=== PATIENT | female | born 1965 | race African-American/Black ===

== ENCOUNTER 2016-12-19 13:37 | Emergency (ER) | payer OTHER ==
[2016-12-19 13:44] VITALS: TEMP 98.6; BMI 40.1
[2016-12-19] MEDS ORDERED: ATENOLOL 50 MG TABLET (FP) PO ONE (14:45)
[2016-12-19] MEDS ORDERED: ATENOLOL 25 MG TABLET (FP) ONE (14:48)
--- NOTE | 2016-12-19 15:00 | PDOC ---
History of Present Illness - General Chief Complaint: Blood Pressure Problem Stated Complaint: HIGH BLOOD PRESSURE Time Seen by Provider: 12/19/16 14:40 History Source: Patient Exam Limitations: No Limitations - History of Present Illness Initial Comments: CHIEF COMPLAINT: 51 y/o afebrile female with PMH HTN sent over from work for feeling dizzy. HISTORY OF PRESENT ILLNESS: The patient states she only took 1 of her BP meds this morning; normally she takes lisinopril and atenolol in the morning but is out of her atenolol. She states the temperature at her job was very high and she felt dizzy so they sent her here. She states as soon as she got out of the warm building she instantly felt better. She denies REYES, neck pain, fall, LOC, f /c, n/v/d, CP, SOB, abd pain, back pain, palpitations, changes in vision/ hearing. Vital signs on arrival are notable for pulse of 111 and BP of 165/105. REVIEW OF SYSTEMS: GENERAL/CONSTITUTIONAL: No fever/chills. No weakness. No weight change. HEAD, EYES, EARS, NOSE AND THROAT: No change in vision. No ear pain or discharge. No sore throat. CARDIOVASCULAR: No chest pain or shortness of breath. RESPIRATORY: No cough, wheezing, or hemoptysis. GASTROINTESTINAL: no abd pain, nausea, vomiting, diarrhea. GENITOURINARY: No dysuria, frequency, or change in urination. MUSCULOSKELETAL: No joint or muscle swelling or pain. No neck or back pain. SKIN: No rash or easy bruising. NEUROLOGIC: +dizziness (resolved). No headache, vertigo, loss of consciousness, or loss of sensation. PHYSICAL EXAM: GENERAL: The patient is awake, alert, and fully oriented, in no acute distress. She is very well appearing, in NAD or obvious discomfort. HEAD: Normal with no signs of trauma. NECK: Full ROM of cervical spine. No meningismus. ENT: Pupils equal, round and reactive to light, extraocular movements intact, sclera anicteric, conjunctiva clear. No photophobia. LUNGS: Clear to auscultation bilaterally. Normal excursion. No respiratory distress or use of accessory muscles. CV: RRR, S1/S2, no MRG. Cap refill < 2 sec. No carotid bruits ABDOMEN: Soft, non-distended, non-tender even to deep palpation, no hepatomegaly or splenomegaly, no masses. EXTREMITIES: Normal range of motion, no edema. NEUROLOGICAL: Normal speech, normal gait. CN II-XII grossly intact. PSYCH: Normal mood, normal affect. SKIN: Warm, dry, normal turgor, no rashes or lesions noted. Past History - Past Medical History Allergies/Adverse Reactions: Allergies Allergy/AdvReac Type Severity Reaction Status Date / Time Penicillins Allergy Verified 12/19/16 13:39 Home Medications: Ambulatory Orders Atenolol [Tenormin] 50 mg PO DAILY 03/19/12 Albuterol Sulfate [Proair Respiclick] 90 mcg IH Q4HWA PRN 12/19/16 Anemia: Yes Asthma: Yes Cancer: No Cardiac Disorders: No CVA: No COPD: Yes (SarcoidOSIS) CHF: No Dementia: No Diabetes: No GI Disorders: No Disorders: No HTN: Yes Hypercholesterolemia: No Liver Disease: No Seizures: No Thyroid Disease: No - Surgical History Appendectomy: Yes Cholecystectomy: Yes - Psycho/Social/Smoking Cessation Hx Suicidal Ideation: No Smoking Status: No Smoking History: Never smoked Number of Cigarettes Smoked Daily: 0 Hx Alcohol Use: Yes (OCCASIONALLY) Drug/Substance Use Hx: No Substance Use Type: None Hx Substance Use Treatment: No *Physical Exam - Vital Signs Last Vital Signs Temp Pulse Resp BP Pulse Ox 98.6 F 111 H 19 165/105 98 12/19/16 13:39 12/19/16 13:39 12/19/16 13:39 12/19/16 13:39 12/19/16 13:39 Heart Score/ECG Review - ECG Intrepretation Comment:: Twelve-lead EKG was performed and reviewed by Dr. Brown. There is normal sinus rhythm with a normal rate. The axis is normal. The intervals are normal. There are no ST or T wave abnormalities. Impression: Normal twelve-lead EKG Medical Decision Making - Medical Decision Making A/P: 51 y/o female with dizziness today at work found to have BP of 165/105 and BP of 111. She states she is now asymptomatic. She did not take her BP meds this morning. Plan is as follows: 1. EKG 2. PO atenolol 3. reassess EKG normal The patient continues to remain asymptomatic. Her repeat BP is 166/104 with HR of 67. She wants to go home. Will discharge to home. Instructed her to apple picker her BP meds today and take as prescribed daily. Instructed her to return to the ER immediately with any worsening or concerning symptoms. The patient verbalizes understanding of all instructions, has no further questions and is awaiting discharge. *DC/Admit/Observation/Transfer Diagnosis at time of Disposition: Dizziness HTN (hypertension) Qualifiers: Hypertension type: other secondary hypertension Qualified Code(s): I15.8 - Other secondary hypertension - Discharge Dispostion Disposition: HOME Condition at time of disposition: Improved - Referrals Referrals: Sammie Wilder MD [Primary Care Provider] - - Patient Instructions Printed Discharge Instructions: DI for High Blood Pressure, DI for Dizziness- Nonvertigo Additional Instructions: Discharge Instructions: -apple picker your blood pressure medication prescription and take BP meds as prescribed daily -Drink at least 64oz of water daily -Follow up with your doctor next week -Return to the ER with any worsening or concerning symptoms.
[2016-12-19 16:07] VITALS: BP 166/104; PULSE 68
--- NOTE | 2016-12-22 12:54 | EKG ---
Test Reason : Blood Pressure : / mmHG Vent. Rate : 073 BPM Atrial Rate : 073 BPM P-R Int : 160 ms QRS Dur : 082 ms QT Int : 388 ms P-R-T Axes : 050 -08 028 degrees QTc Int : 427 ms NORMAL SINUS RHYTHM NORMAL ECG WHEN COMPARED WITH ECG OF 19-MAR-2012 10:07, NO SIGNIFICANT CHANGE WAS FOUND Confirmed by QING KAYE MD ([id number]) on 12/22/2016 12:54:06 PM Referred By: Confirmed By:QING AKYE MD
== END 2016-12-19 16:24 | disposition home or self-care (01) ==
LOC: JER 13:37
DX: I15.8 Other secondary hypertension (principal); J45.909 Unspecified asthma, uncomplicated; D64.9 Anemia, unspecified
CPT/HCPCS: 93005; 93010; 99282-25

== ENCOUNTER 2019-06-22 07:33 | Observation (INO) | payer OTHER ==
[2019-06-22] MEDS ORDERED: ASPIRIN 81 MG CHEWABLE TABLETS PO ONE (08:40)
[2019-06-22 08:50] LABS: BASO % 1.4 % (0-2.0); EOS % 2.2 % (0-4.5); HEMATOCRIT 39.9 % (32.4-45.2); HEMOGLOBIN 12.9 GM/dL (10.7-15.3); LYMPH % 23.6 % (8-40); MCH 23.5 pg (25.7-33.7); MCHC 32.2 g/dl (32.0-36.0); MEAN PLT VOLUME 8.8 fl (7.5-11.1); MONO % 7.2 % (3.8-10.2); NEUT % 65.6 % (42.8-82.8); PLATELET COUNT 236 K/MM3 (134-434); RBC 5.47 M/mm3 (3.60-5.2); RDW 14.1 % (11.6-15.6); WHITE BLOOD COUNT 4.5 K/mm3 (4.0-10.0)
[2019-06-22] MEDS ORDERED: ASPIRIN 81 MG CHEWABLE TABLETS ONE (08:54)
[2019-06-22 09:17] LABS: ALBUMIN 3.7 g/dl (3.4-5.0); BILIRUBIN,TOTAL 0.4 mg/dL (0.2-1); BLOOD UREA NITROGEN 16.6 mg/dL (7-18); CALCIUM 9.2 mg/dL (8.5-10.1)
--- NOTE | 2019-06-22 09:22 | PDOC ---
Documentation entered by Matthew Alexander SCRIBE, acting as scribe for Italia Brown MD. Italia Brown MD: This documentation has been prepared by the Catherine teixeira Xhesika, SCRIBE, under my direction and personally reviewed by me in its entirety. I confirm that the documentation accurately reflects all work, treatment, procedures, and medical decision making performed by me. History of Present Illness - General Chief Complaint: Chest Pain Stated Complaint: CHEST DISCOMFORT History Source: Patient Exam Limitations: No Limitations - History of Present Illness Initial Comments: 06/22/19 08:31 The patient is a 54 year old female with a significant PMH of anemia, asthma, COPD, CHF, HTN, and DM sarcoidosis who presents to the emergency department for sudden onset of L sided chest pain described as tightness." Patient notes she got out the shower this morning and could not lift her L hand up. Pt notes she took 2 baby aspirins with mild relief of symptoms. Patient notes she had a stress test done within the past year and it was abnormal. Pt denies leg swelling, shortness of breath, headache and dizziness. Denies fever, chills, cough, nausea, vomiting, diarrhea and constipation. Allergies: Penicillins Past surgical history: Appendectomy, Cholecystectomy PCP: Sammie Bell 06/22/19 09:23 Past History - Past Medical History Allergies/Adverse Reactions: Allergies Allergy/AdvReac Type Severity Reaction Status Date / Time Penicillins Allergy Verified 06/22/19 07:38 Home Medications: Ambulatory Orders Atenolol [Tenormin] 50 mg PO DAILY 03/19/12 Albuterol Sulfate [Proair Respiclick] 90 mcg IH Q4HWA PRN 12/19/16 Anemia: Yes Asthma: Yes Cancer: No Cardiac Disorders: No CVA: No COPD: Yes (SarcoidOSIS) CHF: Yes Dementia: No Diabetes: Yes GI Disorders: No Disorders: No HTN: Yes Hypercholesterolemia: No Liver Disease: No Seizures: No Thyroid Disease: No - Surgical History Appendectomy: Yes Cholecystectomy: Yes - Psycho Social/Smoking Cessation Hx Smoking Status: No Smoking History: Never smoked Number of Cigarettes Smoked Daily: 0 Hx Alcohol Use: No Drug/Substance Use Hx: No Substance Use Type: None Hx Substance Use Treatment: No Review of Systems - Review of Systems Able to Perform ROS?: Yes Comments:: 06/22/19 08:31 GENERAL/CONSTITUTIONAL: No fever or chills. No weakness. HEAD, EYES, EARS, NOSE AND THROAT: No change in vision. No ear pain or discharge. No sore throat. CARDIOVASCULAR: +chest pain/ chest tightness. No shortness of breath. RESPIRATORY: No cough, wheezing, or hemoptysis. GASTROINTESTINAL: No nausea, vomiting, diarrhea or constipation. GENITOURINARY: No dysuria, frequency, or change in urination. MUSCULOSKELETAL: No joint or muscle swelling or pain. No neck or back pain. SKIN: No rash NEUROLOGIC: No headache, vertigo, loss of consciousness, or change in strength/ sensation. ENDOCRINE: No increased thirst. No abnormal weight change. HEMATOLOGIC/LYMPHATIC: No anemia, easy bleeding, or history of blood clots. ALLERGIC/IMMUNOLOGIC: No hives or skin allergy. *Physical Exam - Vital Signs Last Vital Signs Temp Pulse Resp BP Pulse Ox 97.9 F 61 18 167/61 06/22/19 07:35 06/22/19 07:35 06/22/19 07:35 06/22/19 07:35 - Physical Exam Comments: 06/22/19 09:19 Awake alert no acute distress lungs are clear bilaterally heart is regular without murmurs rubs or gallops abdomen soft nontender extremities are warm well perfused no edema no calf tenderness neurologically patient is awake alert and oriented x3 has 2+ symmetric distal pulses Heart Score/ECG Review - History History: Moderately suspicious - Electrocardiogram EKG: Normal - Age Age: 45-65 - Risk Factors Risk Factors Heart Score: Yes Hx Hypertension, Yes Positive family hx of cardiac disease, Yes Hx Obesity Based on the list above the patient has:: >/=3 risk factors or Hx atherosclerotic disease - Troponin Troponin: </= normal limit - Score Heart Score - Total: 4 #1 General ECG Interpretation: Sinus Rhythm, Normal Rate, Normal Intervals, No acute ischemic changes Compared to previous ECG there are: Other (left axiw) ED Treatment Course - LABORATORY CBC & Chemistry Diagram: 06/22/19 08:35 06/22/19 08:35 - ADDITIONAL ORDERS Additional order review: Laboratory Results 06/22/19 08:35 Sodium 139 Potassium 4.0 Chloride 108 H Carbon Dioxide 27 Anion Gap 4 L BUN 16.6 Creatinine 1.0 Est GFR (CKD-EPI)AfAm 74.49 Est GFR (CKD-EPI)NonAf 64.27 Random Glucose 143 H Calcium 9.2 Total Bilirubin 0.4 AST 19 ALT 28 Alkaline Phosphatase 123 H Total Protein 7.0 Albumin 3.7 06/22/19 08:35 RBC 5.47 H MCV 73.0 L MCHC 32.2 RDW 14.1 MPV 8.8 Neutrophils % 65.6 Lymphocytes % 23.6 D Monocytes % 7.2 Eosinophils % 2.2 Basophils % 1.4 D - RADIOLOGY Radiology Studies Ordered: Category Date Time Status CHEST PA & LAT [RAD] Stat Radiology 06/22/19 08:40 Taken - Medications Given in the ED: ED Medications Discontinued Medications Generic Name Dose Route Start Last Admin Trade Name Mary PRN Reason Stop Dose Admin Aspirin 162 mg 06/22/19 08:40 06/22/19 08:57 Asa - PO 06/22/19 08:41 162 mg ONCE ONE Administration Medical Decision Making - Medical Decision Making 06/22/19 09:20 54-year-old female history of CHF sarcoidosis, copd htn hypertension here today complaining of chest pain. Patient states that she noted the chest pain this a.m. was described as a tightness in her left substernal area no radiation no associated shortness of breath or diaphoresis no nausea no vomiting states she took 2 baby aspirin at home which relieved her pain was slightly did have a stress test 1 year ago which was an exercise stress which she states did not go very well due to exercise intolerance. 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 Plan EKG chest x-ray CBC CMP troponin. Patient was given an additional 1 6 2 mg of aspirin. Due to her history of heart disease and age patient will be admitted to telemetry for observation rule out ACS. Initial CBC troponin and EKG were unremarkable call placed to Dr. Smyth for admission awaiting callback 06/22/19 09:23 06/22/19 09:24 Discharge - Discharge Information Problems reviewed: Yes Clinical Impression/Diagnosis: HTN (hypertension), Chest pain Condition: Improved - Admission Yes - Follow up/Referral Referrals: Sammie Smyth MD [Primary Care Provider] - - Patient Discharge Instructions - Post Discharge Activity
[2019-06-22] MEDS ORDERED: NITROGLYCERIN SUBLINGUAL 1/150 0.4 MG TAB SL PRN (10:32)
[2019-06-22 11:19] VITALS: BMI 42.8
[2019-06-22] MEDS: ATENOLOL 50 MG TABLET (FP) PO SCH (11:20)
--- NOTE | 2019-06-22 14:40 | HP ---
Admitting History and Physical - Primary Care Physician PCP: Sammie Wilder - Admission Chief Complaint: Chest pain History of Present Illness: Patient is a 54 y/o female with past medical history of HTN, HLD, DM, COPD, Sarcoidosis, CHF. Patient complain of chest pain. She states having L sided chest pain under breast accompanied with numbness to L shoulder. Pain is described as sharp and non-radiating. Pain began this morning while she was getting ready for work and worsened throughout the morning. Currently continues to have chest pain 01/17. Denies SOB, dizziness, or palpitations with chest pain. History Source: Patient Limitations to Obtaining History: No Limitations - Past Medical History Cardiovascular: Yes: CHF, HTN, Hyperlipdemia Pulmonary: Yes: COPD ...LMP: 06/24/14 Endocrine: Yes: Diabetes Mellitus - Past Surgical History Past Surgical History: Yes: Appendectomy, Cholecystectomy, - Smoking History Smoking history: Never smoked Aproximately how many cigarettes per day: 0 - Alcohol/Substance Use Hx Alcohol Use: Yes (occasionally) - Social History Usual Living Arrangement: Yes: Alone ADL: Independent History of Recent Travel: No Home Medications - Allergies Allergies/Adverse Reactions: Allergies Allergy/AdvReac Type Severity Reaction Status Date / Time Penicillins Allergy Verified 06/22/19 07:38 - Home Medications Home Medications: Ambulatory Orders Atenolol [Tenormin] 50 mg PO DAILY 03/19/12 Albuterol Sulfate [Proair Respiclick] 90 mcg IH Q4HWA PRN 12/19/16 Review of Systems - Review of Systems Constitutional: reports: No Symptoms Eyes: reports: No Symptoms HENT: reports: No Symptoms Neck: reports: No Symptoms Cardiovascular: reports: Chest Pain Respiratory: reports: No Symptoms Gastrointestinal: reports: No Symptoms Genitourinary: reports: No Symptoms Breasts: reports: No Symptoms Reported Musculoskeletal: reports: No Symptoms Integumentary: reports: No Symptoms Neurological: reports: No Symptoms Endocrine: reports: No Symptoms Hematology/Lymphatic: reports: No Symptoms Psychiatric: reports: No Symptoms Physical Examination Vital Signs: Vital Signs Temperature 98.4 F 06/22/19 14:00 Pulse Rate 92 H 06/22/19 14:00 Respiratory Rate 20 06/22/19 14:00 Blood Pressure 130/77 06/22/19 14:00 O2 Sat by Pulse Oximetry (%) 100 06/22/19 11:02 Constitutional: Yes: No Distress, Calm, Obese Eyes: Yes: Conjunctiva Clear HENT: Yes: Atraumatic Neck: Yes: Supple Cardiovascular: Yes: Regular Rate and Rhythm Respiratory: Yes: Regular, CTA Bilaterally Gastrointestinal: Yes: Normal Bowel Sounds, Soft, Abdomen, Obese Musculoskeletal: Yes: Muscle Weakness Extremities: Yes: WNL Edema: No Neurological: Yes: Alert, Oriented Psychiatric: Yes: Alert, Oriented Labs: CBC, BMP 06/22/19 08:35 06/22/19 08:35 Imaging - Results Chest X-ray: Report Reviewed Problem List - Problems (1) COPD (chronic obstructive pulmonary disease) Assessment/Plan: -Pulm consult -O2 via NC -keep SpO2 >90% -bronchodilators -CXR shows mild cardiomegaly, possible mild vascular enlargement Code(s): J44.9 - CHRONIC OBSTRUCTIVE PULMONARY DISEASE, UNSPECIFIED (2) Sarcoidosis Assessment/Plan: -Pulm consult -O2 via NC -keep SpO2 >90% -bronchodilators -CXR shows mild cardiomegaly, possible mild vascular enlargement Code(s): D86.9 - SARCOIDOSIS, UNSPECIFIED (3) HLD (hyperlipidemia) Assessment/Plan: -Lipid panel Code(s): E78.5 - HYPERLIPIDEMIA, UNSPECIFIED (4) Chest pain Assessment/Plan: -Tele monitoring -Cardiology consult -Echocardiogram -trop neg Code(s): R07.9 - CHEST PAIN, UNSPECIFIED (5) HTN (hypertension) Assessment/Plan: -Atenolol -low Na/diabetic diet Code(s): I10 - ESSENTIAL (PRIMARY) HYPERTENSION (6) Diabetes mellitus Assessment/Plan: -[facility] -[facility] -HgA1c Code(s): E11.9 - TYPE 2 DIABETES MELLITUS WITHOUT COMPLICATIONS Assessment/Plan see problem list dvt ppx
--- NOTE | 2019-06-22 14:54 | CON.CARD ---
Consult Consult Specialty:: cardiology Referred by:: Tina Reason for Consultation:: chest pain - History of Present Illness Chief Complaint: Chest pain History of Present Illness: The patient is a 54-year-old obese female we've a history of diabetes, hypertension, hyperlipidemia, COPD, sarcoidosis,congestive heart failure,now admitted with chest pains at rest. The patient stated that she was at home when she began experiencing left-sided sharp pains.Symptoms worsened by movement of the left arm. They lasted 2-3 minute per episode.The patient still reports mild discomfort this afternoon. Symptoms are partially reproducible.The patient seems to be quite comfortable at the time of my exam. - History Source History Provided By: Patient Limitations to Obtaining History: No Limitations - Past Medical History ...LMP: 06/24/14 - Alcohol/Substance Use Hx Alcohol Use: Yes (occasionally) - Smoking History Smoking history: Never smoked Aproximately how many cigarettes per day: 0 Home Medications - Allergies Allergies/Adverse Reactions: Allergies Allergy/AdvReac Type Severity Reaction Status Date / Time Penicillins Allergy Verified 06/22/19 07:38 - Home Medications Home Medications: Ambulatory Orders Atenolol [Tenormin] 50 mg PO DAILY 03/19/12 Albuterol Sulfate [Proair Respiclick] 90 mcg IH Q4HWA PRN 12/19/16 Review of Systems - Review of Systems Constitutional: reports: No Symptoms Eyes: reports: No Symptoms HENT: reports: No Symptoms Neck: reports: No Symptoms Cardiovascular: reports: Chest Pain Respiratory: reports: SOB on Exertion Gastrointestinal: reports: No Symptoms Genitourinary: reports: No Symptoms Breasts: reports: No Symptoms Reported Musculoskeletal: reports: No Symptoms Integumentary: reports: No Symptoms Neurological: reports: No Symptoms Endocrine: reports: No Symptoms Hematology/Lymphatic: reports: No Symptoms Psychiatric: reports: No Symptoms Vital Signs: Vital Signs Temperature 98.4 F 06/22/19 14:00 Pulse Rate 92 H 06/22/19 14:00 Respiratory Rate 20 06/22/19 14:00 Blood Pressure 130/77 06/22/19 14:00 O2 Sat by Pulse Oximetry (%) 100 06/22/19 11:02 Constitutional: Yes: No Distress, Calm, Obese Eyes: Yes: WNL, Conjunctiva Clear, EOM Intact HENT: Yes: WNL, Atraumatic, Normocephalic Neck: Yes: WNL, Supple, Trachea Midline Respiratory: Yes: WNL, Regular, CTA Bilaterally Gastrointestinal: Yes: WNL, Normal Bowel Sounds, Soft Renal/: Yes: WNL Cardiovascular: Yes: WNL, Regular Rate and Rhythm JVD: No Carotid Bruit: No PMI: Non-Displaced Heart Sounds: Yes: S1, S2 Murmur: Yes: Systolic Murmur, Grade 2 Musculoskeletal: Yes: WNL Extremities: Yes: WNL Edema: No Peripheral Pulses WNL: Yes Integumentary: Yes: WNL Neurological: Yes: WNL, Alert, Oriented ...Motor Strength: WNL Psychiatric: Yes: WNL, Alert, Oriented - Other Data Labs, Other Data: CBC, BMP 06/22/19 08:35 06/22/19 08:35 Troponin, BNP 06/22/19 08:35 Troponin I < 0.02 Troponin, BNP 06/22/19 08:35 Troponin I < 0.02 Assessment/Plan The patient is a 54-year-old obese female we've a history of diabetes, hypertension, hyperlipidemia, COPD, sarcoidosis,congestive heart failure,now admitted with chest pains at rest. The patient stated that she was at home when she began experiencing left-sided sharp pains.Symptoms worsened by movement of the left arm. They lasted 2-3 minute per episode.The patient still reports mild discomfort this afternoon. Symptoms are partially reproducible.The patient seems to be quite comfortable at the time of my exam. .Atypical, partially reproducible chest pains. Significant risk factors for coronary artery disease there is no evidence of ischemia nor acute coronary syndrome. please arrange for an echocardiogram. please arrange for a pharmacological nuclear stress test. we'll follow results. The patient is stable.
[2019-06-22] MEDS ORDERED: ALBUTEROL SO4 0.083% IH SOL 2.5 MG/3 ML VIAL.NEB. NEB PRN (15:08)
[2019-06-22] MEDS: INSULIN SLIDING SCALE (NOVOLOG) 1 VIAL SQ SCH ×2 (16:29→21:42)
[2019-06-22] MEDS ORDERED: ACETAMINOPHEN 325 MG TABLET (FP) PO PRN (21:50)
[2019-06-23 06:56] LABS: BASO % 0.4 % (0-2.0); EOS % 3.2 % (0-4.5); HEMOGLOBIN 12.1 GM/dL (10.7-15.3); LYMPH % 28.5 % (8-40); MCH 22.7 pg (25.7-33.7); MCHC 31.2 g/dl (32.0-36.0); MEAN CELL VOLUME 72.9 fl (80-96); MEAN PLT VOLUME 8.8 fl (7.5-11.1); MONO % 8.4 % (3.8-10.2); NEUT % 59.5 % (42.8-82.8); PLATELET COUNT 222 K/MM3 (134-434); RBC 5.34 M/mm3 (3.60-5.2); RDW 14.1 % (11.6-15.6); WHITE BLOOD COUNT 4.5 K/mm3 (4.0-10.0)
[2019-06-23] MEDS: INSULIN SLIDING SCALE (NOVOLOG) 1 VIAL SQ SCH ×2 (07:04→11:00)
[2019-06-23 07:53] LABS: ALBUMIN 3.4 g/dl (3.4-5.0); ALK PHOS 113 U/L (45-117); ANION GAP 5 MMOL/L (8-16); BILIRUBIN,TOTAL 0.4 mg/dL (0.2-1); BLOOD UREA NITROGEN 17.4 mg/dL (7-18); CALCIUM 9.2 mg/dL (8.5-10.1); CHLORIDE 106 mmol/L (98-107); CHOLESTEROL 175 mg/dL (50-200); CO2 26 mmol/L (21-32); CREATININE 0.9 mg/dL (0.55-1.3); GLUCOSE,RANDOM 140 mg/dL (74-106); HDL CHOLESTEROL 50 mg/dL (40-60); LDL CHOLESTEROL (ONLY SJRH) 101 mg/dL (5-100); MAGNESIUM 2.2 mg/dL (1.8-2.4); PHOSPHOROUS 3.7 mg/dL (2.5-4.9); POTASSIUM 4.1 mmol/L (3.5-5.1); SGOT/AST 14 U/L (15-37); SGPT/ALT 26 U/L (13-61); SODIUM 138 mmol/L (136-145); TOT PROT 6.4 g/dl (6.4-8.2); TRIGLYCERIDES 86 mg/dL (0-150)
[2019-06-23] MEDS: ASPIRIN COATED 81 MG TABLET.EC PO SCH ×2 (09:37→14:30)
[2019-06-23] MEDS: ATENOLOL 50 MG TABLET (FP) PO SCH ×2 (09:37→14:29)
[2019-06-23] MEDS ORDERED: REGADENOSON 0.4 MG/5 ML PRE-FILLED SYRINGE IVPUSH ONE ×2 (10:23→10:30)
--- NOTE | 2019-06-23 12:40 | EKG ---
Test Reason : Blood Pressure : / mmHG Vent. Rate : 062 BPM Atrial Rate : 062 BPM P-R Int : 184 ms QRS Dur : 080 ms QT Int : 420 ms P-R-T Axes : 049 -22 038 degrees QTc Int : 426 ms POOR DATA QUALITY, INTERPRETATION MAY BE ADVERSELY AFFECTED NORMAL SINUS RHYTHM NORMAL ECG WHEN COMPARED WITH ECG OF 19-DEC-2016 15:35, NO SIGNIFICANT CHANGE WAS FOUND Confirmed by EVELYN WISDOM, CARLINE ([id number]) on 06/23/2019 12:39:55 PM Referred By: Confirmed By:CARLINE RIVAS MD
--- NOTE | 2019-06-23 12:56 | ECHO ---
Name: CHIP HAMPTON Exam:Adult Echocardiogram Study Date: 06/23/2019 08:39 AM Age: 54 yrs Reason For Study: Chest pain Height: 67 in Weight: 273 lb BSA: 2.3 m2 MMode/2D Measurements & Calculations IVSd: 1.4 cm Ao root diam: 2.6 cm LVIDd: 3.9 cm LA dimension: 3.8 cm LVIDs: 2.4 cm ACS: 2.0 cm LVPWd: 1.5 cm EDV(Teich): 65.1 ml LVOT diam: 2.0 cm ESV(Teich): 20.8 ml RV S Blaine: 12.1 cm/sec Doppler Measurements & Calculations MV E max blaine: 57.3 cm/sec Ao V2 max: 125.1 cm/sec MV A max blaine: 80.0 cm/sec Ao max P.3 mmHg MV E/A: 0.72 Ao V2 mean: 94.7 cm/sec MV dec time: 0.18 sec Ao mean P.8 mmHg Ao V2 VTI: 26.7 cm TR max blaine: 200.1 cm/sec Med Peak E' Blaine: 7.3 cm/sec TR max P.2 mmHg Med E/e': 7.8 RVSP(TR): 26.2 mmHg Lat Peak E' Blaine: 8.1 cm/sec Lat E/e': 7.1 RAP systole: 10.0 mmHg Procedure A complete two-dimensional transthoracic echocardiogram was performed (2D, M-mode, Doppler and color flow Doppler). The study was technically difficult with many images being suboptimal in quality. Left Ventricle The left ventricular size, thickness and function are normal. The left ventricular ejection fraction is normal. Ejection Fraction = 60-65%. No regional wall motion abnormalities noted. Right Ventricle The right ventricle is normal in size and function. Atria Normal left and right atrial size and function. Mitral Valve There is no mitral regurgitation noted. Tricuspid Valve There is trace tricuspid regurgitation. Right ventricular systolic pressure is normal. Aortic Valve No hemodynamically significant valvular aortic stenosis. No aortic regurgitation is present. Pulmonic Valve There is no pulmonic valvular regurgitation. Great Vessels The aortic root is normal size. Pericardium/Pleura There is no pericardial effusion. Interpretation Summary The study was technically difficult with many images being suboptimal in quality. The left ventricular size, thickness and function are normal The right ventricle is normal in size and function. There is trace tricuspid regurgitation. MD Berry Spann 06/23/2019 12:55 PM
--- NOTE | 2019-06-23 14:08 | PN ---
Progress Note, Physician Chief Complaint: chest pain History of Present Illness: The patient is a 56-year-old man type 1 diabetes, hypertension, end-stage renal disease on hemodialysis (recently began),coronary artery disease and myocardial infarction (no cardiac catheterization due torenalfailure0, now presenting with recurrent chest pains, fluid overload, and severe anemia. The patient is currently comfortable and symptom free. No evidence of ischemia nor acute coronary syndrome. the ECG shows sinus rhythm with an old septal infarct and left atrial enlargement with nonspecific ST-T changes. - Current Medication List Current Medications: Active Medications Acetaminophen (Tylenol -) 650 mg PO Q4H PRN PRN Reason: PAIN LEVEL 1-5 OR FEVER > 100 Albuterol Sulfate (Ventolin 0.083% Nebulizer Soln -) 1 amp NEB Q8H PRN PRN Reason: SHORT OF BREATH/WHEEZING Aspirin (Ecotrin -) 81 mg PO DAILY [facility] Last Admin: 06/23/19 09:37 Dose: Not Given Atenolol (Tenormin -) 50 mg PO DAILY [facility] Last Admin: 06/23/19 09:37 Dose: Not Given Insulin Aspart (Novolog Vial Sliding Scale -) 1 vial SQ ACHS [facility]; Protocol Last Admin: 06/23/19 11:00 Dose: Not Given Nitroglycerin (Nitrostat -) 0.4 mg SL Q5M PRN PRN Reason: FOR CHEST PAIN - Objective Vital Signs: Vital Signs Temperature 98.5 F 06/23/19 06:00 Pulse Rate 60 06/23/19 06:00 Respiratory Rate 18 06/23/19 06:00 Blood Pressure 140/82 06/23/19 06:00 O2 Sat by Pulse Oximetry (%) 100 06/22/19 21:00 Constitutional: Yes: No Distress, Calm, Obese Eyes: Yes: WNL, Conjunctiva Clear, EOM Intact HENT: Yes: WNL, Atraumatic, Normocephalic Neck: Yes: WNL, Supple, Trachea Midline Cardiovascular: Yes: WNL, Regular Rate and Rhythm, S2 Respiratory: Yes: WNL, Regular, CTA Bilaterally Gastrointestinal: Yes: WNL, Normal Bowel Sounds, Soft ...Rectal Exam: Yes: Deferred Genitourinary: Yes: WNL Musculoskeletal: Yes: WNL Extremities: Yes: WNL Edema: No Peripheral Pulses WNL: Yes Integumentary: Yes: WNL Neurological: Yes: WNL, Alert, Oriented ...Motor Strength: WNL Psychiatric: Yes: WNL, Alert, Oriented Labs: CBC, BMP 06/23/19 05:40 06/23/19 05:40 Assessment/Plan The patient is a 56-year-old man type 1 diabetes, hypertension, end-stage renal disease on hemodialysis (recently began),coronary artery disease and myocardial infarction (no cardiac catheterization due torenalfailure0, now presenting with recurrent chest pains, fluid overload, and severe anemia. The patient is currently comfortable and symptom free. No evidence of ischemia nor acute coronary syndrome. the ECG shows sinus rhythm with an old septal infarct and left atrial enlargement with nonspecific ST-T changes. The patient's echocardiogram was technically difficult. It showed that both ventricles are functioning normally. No other clinically important findings noted. nuclear stress test results are still pending.The blood pressure needs better control. Start Norvasc 5 mg daily. Continue the other medications as currently. Stress test results are pending. the patient may potentially go home if the stress test is normal. otherwise she will be seen tomorrow.
[2019-06-23 15:06] VITALS: BP 133/80; PULSE 64; TEMP 98.6
--- NOTE | 2019-06-23 15:12 | DS ---
Physical Examination Vital Signs: Vital Signs Temperature 98.6 F 06/23/19 14:10 Pulse Rate 64 06/23/19 14:10 Respiratory Rate 18 06/23/19 14:10 Blood Pressure 133/80 06/23/19 14:10 O2 Sat by Pulse Oximetry (%) 100 06/22/19 21:00 Constitutional: Yes: Calm Cardiovascular: Yes: Regular Rate and Rhythm, S1, S2 Respiratory: Yes: CTA Bilaterally Gastrointestinal: Yes: Normal Bowel Sounds, Soft Neurological: Yes: Alert, Oriented Labs: CBC, BMP 06/23/19 05:40 06/23/19 05:40 Discharge Summary Problems reviewed: Yes Reason For Visit: CHEST PAIN Current Active Problems COPD (chronic obstructive pulmonary disease) (Acute) Chest pain (Acute) Diabetes mellitus (Acute) HLD (hyperlipidemia) (Acute) HTN (hypertension) (Acute) Sarcoidosis (Acute) Other Procedures: stress test negative. echo normal left ventricle fucntion and size Hospital Course: jose is a 54 y/o female with past medical history of HTN, HLD, DM, COPD, Sarcoidosis, CHF. Patient complain of chest pain. She states having L sided chest pain under breast accompanied with numbness to L shoulder. Pain is described as sharp and non-radiating. Pain began this morning while she was getting ready for work and worsened throughout the morning. Currently continues to have chest pain 01/17. Denies SOB, dizziness, or palpitations with chest pain. admitted to telemetry got stress test and an echo seen by cardiology lipd panel noted for LDL 101 to start atorvastatin 10mg hS Condition: Improved - Instructions Referrals: Sammie Wilder MD [Primary Care Provider] - Disposition: HOME - Home Medications Comprehensive Discharge Medication List: Ambulatory Orders Atenolol [Tenormin] 50 mg PO DAILY 03/19/12 Albuterol Sulfate [Proair Respiclick] 90 mcg IH Q4HWA PRN 12/19/16 Dapagliflozin Propanediol [Farxiga] 5 mg PO DAILY 06/23/19
[2019-06-23] MEDS ORDERED: ATORVASTATIN CA 10 MG TABLET (FP) PO SCH (22:00)
== END 2019-06-23 15:37 | disposition home or self-care (01) ==
LOC: JER 07:33 → JERBED 09:57 → UNDOADMOB 09:57 → OBSVTOIN 10:29 → INTOOBSV 10:29 → JERBED 11:00 → J4W 11:00 → JERBED 06-23 10:21
PROVIDERS: ADMIT Family Medicine; ATTEND Family Medicine
PROC: 3E033GC Introduction of Other Therapeutic Substance into Peripheral Vein, Percutaneous Approach (ICD-10-PCS; principal; 2019-06-23)
DX: R07.89 Other chest pain (principal); I11.0 Hypertensive heart disease with heart failure; E11.9 Type 2 diabetes mellitus without complications; I50.9 Heart failure, unspecified; J44.9 Chronic obstructive pulmonary disease, unspecified; E78.5 Hyperlipidemia, unspecified; D86.9 Sarcoidosis, unspecified; I25.2 Old myocardial infarction; E66.9 Obesity, unspecified; Z68.41 Body mass index [BMI] 40.0-44.9, adult; Z88.0 Allergy status to penicillin
CPT/HCPCS: 36415; 71046-TC-FY; 78452-TC; 80053; 80061; 82550; 82553; 82962; 83036; 83721; 83735; 84100; 84484; 85025; 93005; 93010; 93017; 93306-TC; 99285-25; A9502; G0378; J2785

== ENCOUNTER 2021-02-01 19:02 | Emergency (ER) | payer OTHER ==
[2021-02-01 19:26] VITALS: BP 159/109; PULSE 70; TEMP 98.8; BMI 41.5
[2021-02-01] MEDS ORDERED: MAG HYDROX/AL HYDROX/SIMETH 30 ML UNIT-DOSE CUP PO ONE (19:49)
[2021-02-01] MEDS ORDERED: ACETAMINOPHEN 1000 MG/100 ML VIAL (NON FORMULARY) IVPB ONE (19:49)
[2021-02-01] MEDS ORDERED: ACETAMINOPHEN INJECTION 100 ML IVPB ONE (19:53)
[2021-02-01] MEDS ORDERED: MAG HYDROX/AL HYDROX/SIMETH 30 ML UNIT-DOSE CUP ONE (19:53)
[2021-02-01 20:18] LABS: BASO % 2.8 % (0-2.0); EOS % 1.9 % (0-4.5); HEMOGLOBIN 12.3 GM/dL (10.7-15.3); LYMPH % 29.6 % (8-40); MCH 22.8 pg (25.7-33.7); MCHC 31.7 g/dl (32.0-36.0); MEAN CELL VOLUME 71.9 fl (80-96); MEAN PLT VOLUME 8.7 fl (7.5-11.1); MONO % 7.5 % (3.8-10.2); NEUT % 58.2 % (42.8-82.8); PLATELET COUNT 254 10^3/uL (134-434); RBC 5.42 M/mm3 (3.60-5.2); RDW 13.9 % (11.6-15.6); WHITE BLOOD COUNT 6.3 K/mm3 (4.0-10.0)
[2021-02-01 20:24] LABS: INR 0.99 (0.83-1.09); PROTHROMBIN TIME (PATIENT) 12.2 SEC (9.7-13.0)
[2021-02-01 20:26] LABS: ACTIVATED PTT 25.7 SECONDS (25.2-36.5)
[2021-02-01 20:40] LABS: CHLORIDE 107 mmol/L (98-107); SODIUM 141 mmol/L (136-145)
[2021-02-01 20:42] LABS: ALBUMIN 4.2 g/dl (3.4-5.0); CALCIUM 9.9 mg/dL (8.5-10.1); LIPASE 94 U/L (73-393)
[2021-02-01 20:43] LABS: ANION GAP 10 MMOL/L (8-16); CO2 25 mmol/L (21-32); GLUCOSE,RANDOM 126 mg/dL (74-106)
[2021-02-01 20:46] LABS: SGOT/AST 21 U/L (15-37); SGPT/ALT 32 U/L (13-61)
[2021-02-01 20:48] LABS: ALK PHOS 130 U/L (45-117); BILIRUBIN,TOTAL 0.3 mg/dL (0.2-1); TOT PROT 7.4 g/dl (6.4-8.2)
[2021-02-01] MEDS ORDERED: LIDOCAINE PATCH REMOVAL MC SCH (22:00)
[2021-02-01] MEDS ORDERED: METHOCARBAMOL 500 MG TABLET PO ONE (22:30)
[2021-02-01] MEDS ORDERED: LIDOCAINE 5% TOPICAL PATCH TP ONE (22:31)
[2021-02-01] MEDS ORDERED: METHOCARBAMOL 500 MG TABLET ONE (22:34)
[2021-02-01] MEDS ORDERED: LIDOCAINE 5% TOPICAL PATCH ONE (22:34)
== END 2021-02-01 23:38 | disposition home or self-care (01) ==
LOC: JER 19:02
PROC: 3E0333Z Introduction of Anti-inflammatory into Peripheral Vein, Percutaneous Approach (ICD-10-PCS; principal; 2021-02-01)
DX: S00.93XA Contusion of unspecified part of head, initial encounter (principal); R10.9 Unspecified abdominal pain
CPT/HCPCS: 36415; 70450-TC; 74177-TC; 80053; 83690; 84484; 84703; 85025; 85610; 85730; 93005; 93010; 99285-25; J0131; Q9967

== ENCOUNTER 2021-02-28 08:00 | Emergency (ER) | payer OTHER ==
[2021-02-28 08:21] VITALS: BMI 41.6
[2021-02-28] MEDS ORDERED: LACTATED RINGERS SOLUTION 1000 ML INFUS.BAG IV ONE (08:55)
[2021-02-28] MEDS ORDERED: METOCLOPRAMIDE HCL INJECTION 10 MG/2 ML VIAL IVPB ONE (08:55)
[2021-02-28] MEDS ORDERED: ACETAMINOPHEN 1000 MG/100 ML VIAL (NON FORMULARY) IVPB ONE (08:55)
[2021-02-28] MEDS ORDERED: ACETAMINOPHEN INJECTION 100 ML IVPB ONE ×2 (09:36→11:17)
[2021-02-28] MEDS ORDERED: METOCLOPRAMIDE HCL INJECTION 10 MG/2 ML VIAL ONE (09:36)
[2021-02-28 12:09] VITALS: BP 162/92; PULSE 59; TEMP 97.7
== END 2021-02-28 12:20 | disposition home or self-care (01) ==
LOC: JER 08:00
PROC: 3E033NZ Introduction of Analgesics, Hypnotics, Sedatives into Peripheral Vein, Percutaneous Approach (ICD-10-PCS; principal; 2021-02-28)
PROC: 3E033GC Introduction of Other Therapeutic Substance into Peripheral Vein, Percutaneous Approach (ICD-10-PCS; 2021-02-28)
PROC: 3E033GC Introduction of Other Therapeutic Substance into Peripheral Vein, Percutaneous Approach (ICD-10-PCS; 2021-02-28)
DX: S06.0X0A Concussion without loss of consciousness, initial encounter (principal)
CPT/HCPCS: 70450-TC; 99285-25; J0131

== ENCOUNTER 2022-08-26 15:36 | Emergency (ER) | payer OTHER ==
[2022-08-26 15:41] VITALS: BP 158/89; PULSE 102; RESP 20; TEMP 98.7; BMI 41.5
[2022-08-26] MEDS ORDERED: KETOROLAC TROMETHAMINE 30 MG/1 ML VIAL IM ONE (16:22)
[2022-08-26] MEDS ORDERED: LIDOCAINE 5% TOPICAL PATCH TP ONE (16:22)
[2022-08-26] MEDS ORDERED: METHOCARBAMOL 500 MG TABLET PO ONE (16:22)
[2022-08-26] MEDS ORDERED: LIDOCAINE 5% TOPICAL PATCH ONE (16:42)
[2022-08-26] MEDS ORDERED: KETOROLAC TROMETHAMINE 30 MG/1 ML VIAL ONE (16:43)
[2022-08-26] MEDS ORDERED: METHOCARBAMOL 500 MG TABLET ONE (16:43)
[2022-08-26] MEDS ORDERED: LIDOCAINE PATCH REMOVAL MC SCH (22:00)
== END 2022-08-26 16:54 | disposition home or self-care (01) ==
LOC: JERFT 15:36
PROC: 3E023GC Introduction of Other Therapeutic Substance into Muscle, Percutaneous Approach (ICD-10-PCS; principal; 2022-08-26)
DX: M54.50 Low back pain, unspecified (principal)
CPT/HCPCS: 99284-25

== ENCOUNTER 2022-10-08 15:17 | Emergency (ER) | payer OTHER ==
[2022-10-08 15:25] VITALS: BP 129/70; PULSE 82; RESP 16; TEMP 98; BMI 41.5
[2022-10-08] MEDS ORDERED: IBUPROFEN 600 MG TABLET (FP) PO ONE ×2 (16:15→16:17)
== END 2022-10-08 18:21 | disposition home or self-care (01) ==
LOC: JERFT 15:17
DX: M25.561 Pain in right knee (principal); M25.562 Pain in left knee
CPT/HCPCS: 73560-TC-LT-FY; 73560-TC-RT-FY; 99284-25

== ENCOUNTER 2022-10-21 08:49 | Emergency (ER) | payer OTHER ==
[2022-10-21 08:58] VITALS: RESP 18; BMI 41.5
[2022-10-21] MEDS ORDERED: ACETAMINOPHEN 500 MG TABLET (FP) PO ONE (09:28)
[2022-10-21] MEDS ORDERED: ACETAMINOPHEN 500 MG TABLET (FP) ONE (09:35)
[2022-10-21 11:19] VITALS: BP 169/89; PULSE 71; TEMP 98
== END 2022-10-21 11:25 | disposition home or self-care (01) ==
LOC: JERFT 08:49
DX: M25.562 Pain in left knee (principal); V49.50XA Passenger injured in collision with unspecified motor vehicles in traffic accident, initial encounter; Y92.410 Unspecified street and highway as the place of occurrence of the external cause
CPT/HCPCS: 73562-TC-LT-FY; 99283-25